=== PATIENT | male | born 1980 | race Caucasian/White ===

== ENCOUNTER 2017-08-02 03:32 | Emergency (ER) | payer OTHER ==
[~2017-08-02] VITALS: Ht 180.3 cm; Wt 95.0 kg
[~2017-08-02 03:32] MED LIST: AMLO10 PO; HYDRA25 PO; PROT40TA PO; SUCR1 PO
[2017-08-02 03:34] VITALS: BP 170/78; PULSE 91; RESP 16; TEMP 97.7; O2SAT 100
--- NOTE | 2017-08-02 03:55 | PD ---
HPI Chief Complaint: Skin Problem Time Seen by Provider: 03:46 Travel History International Travel<30 days: No Contact w/Intl Traveler<30days: No Traveled to known affect area: No History of Present Illness HPI Patient comes in with concerns for possible early abscess left distal bicep. Patient states that approximately 2 weeks ago he was drunk and injected cocaine. Patient states he does not do this regularly because he was drunk he did "something stupid". Patient states he's been having a soreness in that area since however over the past 2 days a little small bump has formed. Patient describes pain as a nagging pain without radiation. Pain is worse with certain movement of his elbow. Patient denies doing anything for this. Denies any fevers, chest pain, shortness of breath, or numbness or tingling anywhere. Patient reports he is supposed to be on 2 different blood pressure medicines but he does not take them. PFSH Past Medical History Arthritis: No Asthma: No Blood Disorders: No Anxiety: No Depression: No Heart Rhythm Problems: No Cancer: No Cardiovascular Problems: No High Cholesterol: No Chest Pain: No Congestive Heart Failure: No COPD: No Cerebrovascular Accident: No Diabetes: No Diminished Hearing: No Endocrine: No Gastrointestinal Disorders: No GERD: No Genitourinary: No Headaches: No Hiatal Hernia: No Hypertension: Yes Immune Disorder: No Implanted Vascular Access Dvce: No Kidney Stones: No Musculoskeletal: No Neurologic: No Psychiatric: No Reproductive: No Respiratory: No Migraines: No Renal Failure: Yes (Hx) Seizures: No Sickle Cell Disease: No Sleep Apnea: Yes (not officially diagnosed) Thyroid Disease: No Ulcer: No Tetanus Vaccination: Unknown Past Surgical History AICD: No Arteriovenous Shunt: No Insulin Pump: No Joint Replacement: No Pacemaker: No Other Surgery: Yes (port for dialysis and removal) Social History Alcohol Use: Yes (weekly) Tobacco Use: Yes (1 PPD) Substance Use: Yes (Marijuana, Cocaine ) Allergies-Medications (Allergen,Severity, Reaction): Coded Allergies: No Known Allergies (Unverified , 06/19/16) Reported Meds & Prescriptions Reported Meds & Active Scripts Active Bactrim DS (Sulfamethoxazole-Trimethoprim) 800-160 Mg Tab 1 Tab PO BID Protonix (Pantoprazole Sodium) 40 Mg Tab 40 Mg PO DAILY Sucralfate 1 Gm Tab 1 Gm PO ACHS Hydralazine HCl 25 Mg Tab 25 Mg PO Q8HR Norvasc (Amlodipine Besylate) 10 Mg Tab 10 Mg PO DAILY Review of Systems Except as stated in HPI: all other systems reviewed are Neg Physical Exam Narrative GENERAL: Well-developed, overly nourished, in no acute distress, and non-ill appearing. SKIN: Focused skin assessment warm and dry. Small palpable lump noted left distal biceps just proximal to the antecubital. There is no erythematous, induration, fluctuation, crepitus, or drainage. It is afebrile. Seems to disappear with full extension of the left elbow increases in size with flexion of the left elbow. Patient reports mild tenderness over the lump. HEAD: Atraumatic. Normocephalic. EYES: Pupils equal and round. EOMI. No scleral icterus. No injection or drainage. ENT: No nasal bleeding or discharge. Mucous membranes pink and moist. NECK: Trachea midline. Supple. No nuclear rigidity. RESPIRATORY: No accessory muscle use. No respiratory distress. MUSCULOSKELETAL: No obvious deformities. No clubbing. No cyanosis. No edema. Full range of motion. NEUROLOGICAL: Awake and alert. No obvious cranial nerve deficits. Motor grossly within normal limits. Normal speech. PSYCHIATRIC: Appropriate mood and affect; insight and judgment normal. Data Data Last Documented VS Vital Signs Date Time Temp Pulse Resp B/P (MAP) Pulse Ox O2 Delivery O2 Flow Rate FiO2 08/02/17 04:16 08/02/17 03:34 97.7 91 16 100 Room Air Orders Orders Elbow, Limited (Ap&Lat) (08/02/17 ) Ed Discharge Order (08/02/17 04:13) [facility] Medical Decision Making Medical Screen Exam Complete: Yes Emergency Medical Condition: Yes Interpretation(s) X-ray reviewed shows no obvious foreign body. Radiologist to over read. Differential Diagnosis Abscess, cellulitis, foreign body, cyst, thrombophlebitis, other Narrative Course The patient has a prior history of hypertension and admits to noncompliance with their antihypertensive medications. The patient has no symptoms as well. The patient denied headache, changes in vision, nausea, vomiting, dizziness, weakness or loss of sensation. The patient denied and chest, back or abdominal pain. The patient also denied any shortness of breath, dyspnea on exertion, orthopnea or PND. The patient denies any edema to extremities. The patients blood pressures at discharge were at an acceptable level. I discussed with the patient the importance of continuing daily antihypertensive and to not skip doses or stop medications suddenly without instruction by their primary care physician. The patient was instructed to follow up and potential adjustment of blood pressure medications. Return warnings were given to the patient and the patient agreed with plan of care. Patient in no obvious distress upon re-evaluation. Does not appear to abscess at this time. There is no signs of cellulitis. Will place patient on prophylactic antibiotics for possible early abscess secondary to history of IV drug use. All pertinent lRadiology result(s) discussed with patient. Patient was asked if they wanted to speak to my attending, which the patient did not wish to do at this time. Any questions/concerns in reference to patient diagnosis/condition discussed and clarified prior to patient's discharge. Reinforced sheer importance of close follow up with patient's primary physician or primary care clinic. Instructed patient to return to ED immediately, if symptoms return/worsen. Patient showed understanding of above instructions. Further instructions and recommendations were detailed in discharge paperwork. Patient ambulated without difficulty out of ED at discharge. Diagnosis Primary Impression: Lump Referrals: [facility] Patient Instructions: General Instructions, Hypertension (ED) Additional Instructions: Follow-up with your primary care physician or return here in 2 days for recheck. Follow up primary care physician for reevaluation of your hypertension possibly restarting your blood pressure medicine. Take all medication as prescribed. Apply warm compresses to affected area multiple times throughout the day. Return to the emergency department if symptoms get worse. Med/Other Pt SpecificInfo: Prescription(s) given Scripts Sulfamethoxazole-Trimethoprim (Bactrim DS) 800-160 Mg Tab 1 TAB PO BID for Infection, #20 TAB 0 Refills Prov: Melanie Vasquez MD 08/02/17 Disposition: 01 DISCHARGE HOME Condition: Stable Sky Moore Aug 02, 2017 03:55
[2017-08-02] MEDS ORDERED: BACT800T5 PO (04:13)
--- NOTE | 2017-08-02 04:13 | RADRPT ---
EXAM DATE/TIME: 08/02/2017 04:00 [facility] COMPARISON: No previous studies available for comparison. INDICATIONS : Left elbow pain- No known injury MEDICAL HISTORY : Hypertension. Renal failure, chronic. SURGICAL HISTORY : None. ENCOUNTER: Initial ACUITY: 1 day PAIN SCORE: 8/10 LOCATION: Left Elbow FINDINGS: Two view examination of the left elbow demonstrates no soft tissue swelling, joint effusion, fracture or dislocation. Bony mineralization is normal. CONCLUSION: Unremarkable limited examination of the left elbow. Bairon Castillo MD on August 02, 2017 at 4:11 Board Certified Radiologist. This report was verified electronically.
== END 2017-08-02 04:26 | disposition home or self-care (01) ==
LOC: NEPD 03:32
DX: R22.32 Localized swelling, mass and lump, left upper limb (principal); M79.602 Pain in left arm; I10 Essential (primary) hypertension; F17.200 Nicotine dependence, unspecified, uncomplicated; Z87.448 Personal history of other diseases of urinary system
CPT/HCPCS: 73070; 99283

== ENCOUNTER 2017-12-02 05:03 | Emergency (ER) | payer OTHER ==
[~2017-12-02] VITALS: Ht 180.3 cm; Wt 90.0 kg
[~2017-12-02 05:03] MED LIST changes: +BACT800T5 PO
[2017-12-02 05:05] VITALS: BP 162/76; PULSE 108; RESP 18; TEMP 99; O2SAT 99
[2017-12-02] MEDS ORDERED: CEPH-460 PO (06:00)
[2017-12-02] MEDS ORDERED: CEPHALEXIN MONOHYDRATE 500 MG CAP PO ONE (06:00)
[2017-12-02] MEDS ORDERED: ACETAMINOPHEN/HYDROcodone 325 MG/5 MG TAB PO ONE (06:00)
[2017-12-02] MEDS ORDERED: NORC5TAB PO (06:00)
[2017-12-02] MEDS ORDERED: BACT800T5 PO (06:00)
[2017-12-02] MEDS ORDERED: SULFAMETHOXAZOLE-TRIMETHOPRIM DS 800-160 MG TAB PO ONE (06:00)
--- NOTE | 2017-12-02 06:09 | PD ---
HPI Chief Complaint: Cold / Flu Symptoms Time Seen by Provider: 05:28 Travel History International Travel<30 days: No Contact w/Intl Traveler<30days: No Traveled to known affect area: No History of Present Illness HPI 37-year-old right-hand dominant white male presents emergency department with complaints of swelling and pain to his left palm over the last 2-3 days. He does not recall any injury. He noticed increasing pain when he is lifting weights putting pressure on his palm. 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 He reports having scaly dermatitis. The patient also goes on to state that he has been sick for the last few days with a cold. This has consisted of subjective fever, chills, runny nose, sore throat, cough, congestion and general malaise. PFSH Past Medical History Narrative Medical Acute kidney injury on hemodialysis secondary to drug abuse, hypertension Arthritis: No Asthma: No Blood Disorders: No Anxiety: No Depression: No Heart Rhythm Problems: No Cancer: No Cardiovascular Problems: No High Cholesterol: No Chest Pain: No Congestive Heart Failure: No COPD: No Cerebrovascular Accident: No Diabetes: No Diminished Hearing: No Endocrine: No Gastrointestinal Disorders: No GERD: No Genitourinary: No Headaches: No Hiatal Hernia: No Heparin Induced Thrombocytopen: No Hypertension: Yes Immune Disorder: No Implanted Vascular Access Dvce: No Kidney Stones: No Musculoskeletal: No Neurologic: No Psychiatric: No Reproductive: No Respiratory: No Migraines: No Renal Failure: Yes (Hx) Seizures: No Sickle Cell Disease: No Sleep Apnea: Yes (not officially diagnosed) Thyroid Disease: No Ulcer: No Tetanus Vaccination: < 5 Years Past Surgical History AICD: No Arteriovenous Shunt: No Insulin Pump: No Joint Replacement: No Pacemaker: No Other Surgery: Yes (port for dialysis and removal) Social History Alcohol Use: Yes (weekly) Tobacco Use: Yes (1 PPD) Substance Use: Yes (Marijuana, Cocaine ) Allergies-Medications (Allergen,Severity, Reaction): Coded Allergies: No Known Allergies (Verified Adverse Reaction, Unknown, 12/02/17) Reported Meds & Prescriptions Reported Meds & Active Scripts Active [place] (Hydrocodone-Acetaminophen) 5 Mg-325 Mg Tab 1 Tab PO Q6H PRN 3 Days Bactrim DS (Sulfamethoxazole-Trimethoprim) 800-160 Mg Tab 1 Tab PO BID Keflex (Cephalexin) 500 Mg Cap 500 Mg PO Q6H 10 Days Review of Systems Except as stated in HPI: all other systems reviewed are Neg Physical Exam Narrative GENERAL: Well-developed, well-nourished in no acute distress. Nontoxic appearing. HEAD: Normocephalic, atraumatic. EYES: Pupils equal round and reactive. Extraocular motions intact. No scleral icterus. No injection or drainage. ENT: TMs clear without erythema. The external auditory canals clear. Nose: clear rhinorrhea. Posterior pharynx is erythematous and moist. No tonsillar edema or exudate. Uvula midline. Airway patent. NECK: Trachea midline.Supple, nontender, moves head freely. No central bony tenderness or spasm. CARDIOVASCULAR: Regular rate and rhythm without murmurs, gallops, or rubs. RESPIRATORY: Clear to auscultation. Breath sounds equal bilaterally. No wheezes , rales, or rhonchi. GASTROINTESTINAL: Abdomen soft, non-tender, nondistended. No hepato-splenomegaly , or palpable masses. No guarding. EXTREMITIES: No clubbing, cyanosis, or edema. No joint tenderness, effusion, or edema noted. Examination of the left hand reveals swelling of the hyperthenar eminence which is tender, red and warm. Positive induration but no fluctuance or pointing the area measures approximately 3 x 3 cm BACK: Nontender without deformity or crepitance. No flank tenderness. Data Data Last Documented VS Vital Signs Date Time Temp Pulse Resp B/P (MAP) Pulse Ox O2 Delivery O2 Flow Rate FiO2 12/02/17 05:05 99.0 108 18 162/76 (104) 99 Orders Orders Ed Discharge Order (12/02/17 05:57) Acetamin-Hydrocod 325-5 Mg ([place] 5-325 (12/02/17 06:00) Cephalexin (Keflex) (12/02/17 06:00) Sulfamet-Trimeth Ds 800-160 Mg (Bactrim (12/02/17 06:00) MDM Medical Decision Making Medical Screen Exam Complete: Yes Emergency Medical Condition: Yes Medical Record Reviewed: Yes Differential Diagnosis MDM: High Differential diagnoses: Abscess, folliculitis, cellulitis, lymphangitis, abrasion, contact dermatitis, bronchitis, URI, pneumonia Narrative Course Patient given Keflex 1 g p.o., Bactrim DS, and 1 [place] 5 mg p.o. An incision and drainage has been performed. Patient has an abscess to his left hyperthenar eminence which has been incised and drained. He also has an upper respiratory tract infection. Procedures Procedure Narrative I&D abscess: After the risks and benefits were discussed the following procedure was performed. The skin is prepped and draped in the usual sterile fashion using Betadine. The abscess is anesthetized with 1% lidocaine. After adequate anesthesia, an 15 blade scalpel is used to make a 2 centimeter central incision. Perulant material is expressed. Loculations are broken up using curved Rosamaria forceps. The wound is cleansed deeply using dilute Betadine and peroxide on Q-tips. The wound is packed open using iodoform gauze. A clean dressing is applied. The patient tolerated the procedure well. There was no complications. Follow-up instructions were given to the patient. Diagnosis Primary Impression: Left hand abscess Additional Impression: URI Patient Instructions: Narcotic given in the ED, General Instructions Departure Forms: Tests/Procedures, Work Release Special Instructions: No work 3 days. Additional Instructions: Rest. Elevation. keep clean and dry. remove the packing in two days. Daily wound care with soap, water and Neosporin. Keflex, Septra DS, and Lortab. Follow-up with a primary care doctor in one week. Return to the ER for any problems. Med/Other Pt SpecificInfo: Prescription(s) given Scripts Hydrocodone-Acetaminophen ([place]) 5 Mg-325 Mg Tab 1 TAB PO Q6H Y for PAIN for 3 Days, #12 TAB 0 Refills Prov: Abiel Pugh MD 12/02/17 Sulfamethoxazole-Trimethoprim (Bactrim DS) 800-160 Mg Tab 1 TAB PO BID for Infection, #20 TAB 0 Refills Prov: Abiel Pugh MD 12/02/17 Cephalexin (Keflex) 500 Mg Cap 500 MG PO Q6H for Infection for 10 Days, #40 CAP 0 Refills Prov: Abiel Pugh MD 12/02/17 Disposition: 01 DISCHARGE HOME Condition: Stable Morteza Ha Dec 02, 2017 06:09
== END 2017-12-02 06:23 | disposition home or self-care (01) ==
LOC: NEPD 05:03
DX: L02.512 Cutaneous abscess of left hand (principal); J06.9 Acute upper respiratory infection, unspecified; I10 Essential (primary) hypertension; F17.210 Nicotine dependence, cigarettes, uncomplicated
CPT/HCPCS: 10061

== ENCOUNTER 2018-02-07 11:21 | Emergency (ER) | payer OTHER ==
[~2018-02-07] VITALS: Ht 180.3 cm; Wt 95.0 kg
[~2018-02-07 11:21] MED LIST changes: -AMLO10 PO; +CEPH-460 PO; -HYDRA25 PO; +NORC5TAB PO; -PROT40TA PO; -SUCR1 PO
[2018-02-07 11:47] VITALS: BP 129/60; PULSE 75; RESP 16; TEMP 98.2; O2SAT 98
--- NOTE | 2018-02-07 13:21 | PD ---
HPI Chief Complaint: Abdominal Pain Time Seen by Provider: 12:10 Travel History International Travel<30 days: No Contact w/Intl Traveler<30days: No Traveled to known affect area: No History of Present Illness HPI 37-year-old otherwise healthy male presents to the emergency room for evaluation of lower abdominal cramping and left testicular pain for the past 4 weeks. Pain is intermittent. No alleviating or aggravating symptoms of the abdomen. Testicle pain is worsened when his testicles hanging or with certain palpation. He did a self-exam and felt a soft lump on his testicle that was mildly tender. He has not been taking anything for symptoms. He denies dysuria , urgency, frequency, penile discharge, flank pain, fever, chills, nausea, vomiting, or diarrhea. Denies possibility of STDs stating that he has been abstinent for 8 months. PFSH Past Medical History Arthritis: No Asthma: No Blood Disorders: No Anxiety: No Depression: No Heart Rhythm Problems: No Cancer: No Cardiovascular Problems: No High Cholesterol: No Chest Pain: No Congestive Heart Failure: No COPD: No Cerebrovascular Accident: No Diabetes: No Diminished Hearing: No Endocrine: No Gastrointestinal Disorders: No GERD: No Genitourinary: No Headaches: No Hiatal Hernia: No Heparin Induced Thrombocytopen: No Hypertension: Yes Immune Disorder: No Implanted Vascular Access Dvce: No Kidney Stones: No Musculoskeletal: No Neurologic: No Psychiatric: No Reproductive: No Respiratory: No Migraines: No Renal Failure: Yes (Hx) Seizures: No Sickle Cell Disease: No Sleep Apnea: Yes (not officially diagnosed) Thyroid Disease: No Ulcer: No Past Surgical History AICD: No Arteriovenous Shunt: No Insulin Pump: No Joint Replacement: No Pacemaker: No Other Surgery: Yes (port for dialysis and removal) Social History Alcohol Use: Yes (weekly) Tobacco Use: Yes (1 PPD) Substance Use: Yes (Marijuana, Cocaine ) Allergies-Medications (Allergen,Severity, Reaction): Coded Allergies: No Known Allergies (Verified Adverse Reaction, Unknown, 02/07/18) Reported Meds & Prescriptions Reported Meds & Active Scripts Active [place] (Hydrocodone-Acetaminophen) 5 Mg-325 Mg Tab 1 Tab PO Q6H PRN 3 Days Bactrim DS (Sulfamethoxazole-Trimethoprim) 800-160 Mg Tab 1 Tab PO BID Keflex (Cephalexin) 500 Mg Cap 500 Mg PO Q6H 10 Days Review of Systems Except as stated in HPI: all other systems reviewed are Neg Physical Exam Narrative GENERAL: Well-nourished, well-developed male in no acute distress. Afebrile. Ambulatory. SKIN: Focused skin assessment warm/dry. No erythema or ecchymosis. HEAD: Normocephalic. EYES: No scleral icterus. No injection or drainage. NECK: Supple, trachea midline. No JVD or lymphadenopathy. CARDIOVASCULAR: Regular rate and rhythm without murmurs, gallops, or rubs. RESPIRATORY: Breath sounds equal bilaterally. No accessory muscle use. GASTROINTESTINAL: Abdomen soft, non-tender, nondistended. No rebound tenderness. No guarding. GENITOURINARY: Examined in the presence of a nurse. Circumcised. Testes descended bilaterally without evidence of rotation. No obvious masses. Normal cremaster reflex. No lesions or erythema. No urethral discharge. Data Data Last Documented VS Vital Signs Date Time Temp Pulse Resp B/P (MAP) Pulse Ox O2 Delivery O2 Flow Rate FiO2 02/07/18 11:47 98.2 75 16 129/60 (83) 98 Orders Orders Us Testicles W Doppler (02/07/18 ) Urinalysis - C+S If Indicated (02/07/18 13:00) Labs Laboratory Tests Test 02/07/18 13:15 Urine Color YELLOW Urine Turbidity CLEAR Urine pH 6.0 Urine Specific [place] 1.027 Urine Protein NEG mg/dL Urine Glucose (UA) NEG mg/dL Urine Ketones NEG mg/dL Urine Occult Blood TRACE Urine Nitrite NEG Urine Bilirubin NEG Urine Urobilinogen 0.2 MG/DL Urine Leukocyte Esterase NEG Urine RBC 1 /hpf Urine WBC LESS THAN 1 /hpf Microscopic Urinalysis Comment CULT NOT INDICATED MDM Medical Decision Making Medical Screen Exam Complete: Yes Emergency Medical Condition: Yes Medical Record Reviewed: Yes Differential Diagnosis Epididymitis, torsion, hernia, UTI, STD Narrative Course 37-year-old male presents to the emergency room for evaluation of intermittent lower abdominal cramping and left testicle pain for the past 4 weeks. He denies dysuria, urgency, frequency, penile discharge, nausea, vomiting, diarrhea , fever, chills, or flank pain. Physical exam is reassuring. Testicles descended bilaterally without evidence of rotation. No obvious masses or lumps. Normal cremaster reflex. No penile discharge. UA is negative. Ultrasound is negative for acute findings. Patient was reassured and told to follow-up with a primary care physician for continued outpatient workup. Told to return for worsening symptoms. He understands and agrees to plan. Diagnosis Primary Impression: Left testicular pain Referrals: Primary Care Physician Additional Instructions: Rest and drink plenty of fluids. Take ibuprofen with food as directed, as needed for pain. Follow-up with a primary care physician. Return to the emergency room for worsening symptoms. Disposition: 01 DISCHARGE HOME Condition: Stable Claribel Richardson February 07, 2018 13:21
[2018-02-07 13:34] LABS: BILIRUBIN, URINE NEG (NEG); GLUCOSE,URINE NEG (NEG); KETONE, URINE NEG (NEG); NITRITE,URINE NEG (NEG); URINE COLOR YELLOW (YELLW/STRAW); URINE LEUKOCYTE ESTERASE NEG (NEG)
[2018-02-07 13:36] LABS: BLOOD, URINE TRACE (NEG)
--- NOTE | 2018-02-07 14:31 | RADRPT ---
EXAM DATE/TIME: 02/07/2018 13:53 [facility] COMPARISON: No previous studies available for comparison. INDICATIONS : Left testicular pain. MEDICAL HISTORY : Hypertension. Sleep apnea. Renal failure. Substance use. Tobacco use. SURGICAL HISTORY : Port for dialysis and removal. ENCOUNTER: Initial ACUITY: 1 month PAIN SCORE: 3/10 LOCATION: Bilateral scrotum. MEASUREMENTS: RIGHT TESTICLE: 4.2 x 2.6 x 2.5cm LEFT TESTICLE: 4.5 x 2.7 x 2.4 cm FINDINGS: RIGHT TESTICLE: Homogeneous echotexture without intra or extratesticular mass. Blood flow is symmetric and within no rmal limits. No hydrocele or varicocele. Epididymis is within normal limits. LEFT TESTICLE: Homogeneous echotexture without intra or extratesticular mass. Blood flow is symmetric and within no rmal limits. No hydrocele or varicocele. Epididymis is within normal limits. SCROTUM: Within normal limits. CONCLUSION: Normal examination. Baron Cabrera MD on February 07, 2018 at 14:28 Board Certified Radiologist. This report was verified electronically.
== END 2018-02-07 15:02 | disposition home or self-care (01) ==
LOC: NEPD 11:21
DX: N50.812 Left testicular pain (principal); F17.200 Nicotine dependence, unspecified, uncomplicated
CPT/HCPCS: 76870; 81001; 93975; 99284